=== PATIENT | male | born 1995 | race Two or more races ===

== ENCOUNTER 2019-12-19 20:47 | Emergency (ER) | payer OTHER ==
[~2019-12-19] VITALS: Ht 185.4 cm; Wt 85.7 kg
[2019-12-19 20:55] VITALS: Ht 185.4 cm; Wt 85.7 kg
[2019-12-19 22:55] VITALS: BP 117/64
== END 2019-12-19 22:55 | disposition home or self-care (01) ==
LOC: ED 20:47
DX: M25.512 Pain in left shoulder (principal); M79.605 Pain in left leg; V89.2XXA Person injured in unspecified motor-vehicle accident, traffic, initial encounter; Y93.I9 Activity, other involving external motion; Y92.413 State road as the place of occurrence of the external cause; Y99.8 Other external cause status
CPT/HCPCS: Q0092